=== PATIENT | male | born 1995 | race Caucasian/White ===

== ENCOUNTER 2018-04-26 11:13 | Outpatient (CLI) | payer OTHER ==
--- NOTE | 2018-04-26 12:15 | XRay Report ---
AP AND LATERAL LUMBOSACRAL SPINE: History: Pain. The vertebral bodies are well mineralized and normal in alignment and vertebral height with well preserved interspace distances. The visualized portions of the posterior elements are normal. IMPRESSION: Normal study.
== END 2018-04-26 11:14 | disposition home or self-care (01) ==
LOC: XRAY 11:13
PROVIDERS: ATTEND Internal Medicine
DX: E11.9 Type 2 diabetes mellitus without complications (principal); F84.0 Autistic disorder
CPT/HCPCS: 72100